=== PATIENT | female | born 1985 | race Caucasian/White ===

== ENCOUNTER 2019-06-21 15:03 | Inpatient (IN) | payer OTHER ==
[2019-06-21] MEDS ORDERED: OXYTOCIN 10 UNIT/ML 1 ML VIAL IM PRN (15:05)
[2019-06-21] MEDS ORDERED: METHYLERGONOVINE 0.2 MG/ML 1 ML AMP IM PRN (15:05)
[2019-06-21] MEDS ORDERED: TERBUTALINE 1 MG/ML VIAL SQ PRN (15:05)
[2019-06-21] MEDS ORDERED: LIDOCAINE 0.5% (PF) 5 MG/ML (50 ML SDV) SQ PRN (15:05)
[2019-06-21] MEDS ORDERED: CARBOPROST TROMETHAMINE 250 MCG/ML 1 ML AMP IM PRN (15:05)
[2019-06-21] MEDS ORDERED: OXYTOCIN 30 UNITS/500 ML NS 30 UNIT in SALINE 1 500ML.BAG IV SCH (15:15)
[2019-06-21] MEDS ORDERED: DINOPROSTONE 10 MG INSERT.ER VAGINAL ONE (15:30)
[2019-06-21 16:07] LABS: Basophils % (A) 0 %; Eosinophils % (A) 0 %; HCT 36.4 % (34.0-46.0); HGB 12.3 gm/dL (11.4-16.0); Lymphocytes # (A) 1.1 k/uL (1.0-4.8); Lymphocytes % (A) 13 %; MCH 33.2 pg (25.0-35.0); MCHC 33.7 g/dL (31.0-37.0); MCV 98.3 fL (80.0-100.0); Mean Platelet Volume 10.1; Monocytes # (A) 0.3 k/uL (0-1.0); Monocytes % (A) 3 %; Neutrophils # (A) 6.9 k/uL (1.3-7.7); Neutrophils % (A) 81 %; Platelet Count 195 k/uL (150-450); RDW 12.2 % (11.5-15.5); WBC 8.4 k/uL (3.8-10.6)
--- NOTE | 2019-06-21 19:14 | P.HPOB ---
History of Present Illness H&P Date: 06/21/19 Chief Complaint: IUP at 39 and 5/sevenths weeks This is a pleasant 33-year-old 1 para 0 at 39-5/7 weeks with an estimated due date of 06/23/2019. Patient was seen in the office for routine visit. Ultrasound was performed ZACK was noted to be low at 8. Reacti ve NST was obtained in the office. On cervical exam she was 1-2/50/-3. Given her ZACK on the lower end of normal recommendation was made for induction of labor. Patient agreed and was sent to labor and delivery for Cervidil induction of labor. On labs she had a blood type of B+, rubella immune, B surface antigen negative, RPR nonreactive, GBS negative. Patient notes good movement and denies contractions. No loss of fluid or vaginal bleeding. Review of Systems Constitutional: Denies chills, Denies fatigue, Denies fever Ears, nose, mouth and throat: Denies headache Cardiovascular: Denies leg edema Gastrointestinal: Denies constipation, Denies diarrhea, Denies nausea, Denies vomiting Genitourinary: Reports Past Medical History Past Medical History: Thyroid Disorder History of Any Multi-Drug Resistant Organisms: None Reported Past Surgical History: No Surgical Hx Reported Past Anesthesia/Blood Transfusion Reactions: No Reported Reaction Past Psychological History: No Psychological Hx Reported Smoking Status: Never smoker Past Alcohol Use History: None Reported Past Drug Use History: None Reported - Past Family History Father Family Medical History: Cancer Medications and Allergies Home Medications Medication Instructions Recorded Confirmed Type Levothyroxine Sodium [Synthroid] 50 mcg PO DAILY 06/21/19 06/21/19 History Omeprazole [PriLOSEC] 10 mg PO ONCE 06/21/19 06/21/19 History Pnv No.95/Ferrous Fum/Folic AC 1 tab PO ONCE 06/21/19 06/21/19 History [ Multivitamin Tablet] Allergies Allergy/AdvReac Type Severity Reaction Status Date / Time No Known Allergies Allergy Verified 06/21/19 15:12 Exam Osteopathic Statement: *. No significant issues noted on an osteopathic structural exam other than those noted in the History and Physical/Consult. Vital Signs Temp Pulse Resp BP Pulse Ox 06/21/19 15:11 97 F L 89 16 144/82 98 Intake and Output 06/21/19 06/21/19 06/21/19 06:59 14:59 22:59 Other: Weight 83.461 kg Targeted physical exam is performed in this date and mercerizing range controller a well-nourished well-developed female in no acute distress, breathing is noted to be nonlabored, heart has regular rate and rhythm, abdomen is gravid and appropriate for gestational age, heart tones returned be category 1 and she is not kory. On cervical exam she was 1-2/50/-3, Cervidil was placed without di fficulty. Results Result Diagrams: 06/21/19 15:05 Abnormal Lab Results - Last 24 Hours (Table) 06/21/19 Range/Units 15:05 RBC 3.70 L (3.80-5.40) m/uL Assessment and Plan (1) Term Current Visit: Yes Status: Acute Code(s): Z34.90 - ENCNTR FOR SUPRVSN OF NORMAL , UNSP, UNSP TRIMESTER SNOMED Code(s): 53161411 Plan: Patient is admitted to labor and delivery for Cervidil induction of labor. Plan of care discussed with the patient we'll plan to pull Cervidil around 3:30/4 AM and start Pitocin soon after. Patient is advised on pain control options including Stadol and epidural when appropriate. Patient states understanding anticipate spontaneous vaginal delivery tomorrow.
[2019-06-21] MEDS ORDERED: ACETAMINOPHEN TAB 500 MG TAB PO STA (21:01)
[2019-06-21] MEDS: LACTATED RINGERS 1,000 ML IV SCH ×2 (21:03→22:05)
[2019-06-21] MEDS: BUTORPHANOL 1 MG/ML 1 ML VIAL IV PRN (22:15)
[2019-06-22] MEDS: BUTORPHANOL 1 MG/ML 1 ML VIAL IV PRN (00:12)
[2019-06-22] MEDS ORDERED: fentaNYL (PF) 50 MCG/ML 5 ML AMP ONE (01:32)
[2019-06-22] MEDS ORDERED: ROPIVACAINE 5MG/ML 20ML VIAL ONE (01:32)
[2019-06-22] MEDS ORDERED: SODIUM CHLORIDE 0.9% 100 ML BAG ONE (01:32)
[2019-06-22] MEDS: LACTATED RINGERS 1,000 ML IV SCH ×4 (01:45→12:17)
[2019-06-22] MEDS ORDERED: ROPIVACAINE 100 MG, fentaNYL (PF) 200 MCG in SODIUM CHLORIDE 0.9% 76 ML EPIDURAL ONE (02:00)
[2019-06-22] MEDS ORDERED: CITRIC ACID-SODIUM CITRATE 15 ML CUP PO ONE ×2 (07:12→07:16)
[2019-06-22] MEDS ORDERED: PRENATAL VIT-IRON-FOLIC ACID 1 EACH CAP PO ONE (07:30)
[2019-06-22] MEDS ORDERED: ePHEDrine SULFATE/0.9% NACL/PF 50 MG/5 ML SYRINGE IV ONE (07:38)
[2019-06-22] MEDS ORDERED: MORPHINE SULFATE (PF) 0.3 MG/0.3 ML SYR ONE (07:38)
[2019-06-22] MEDS ORDERED: OXYTOCIN 10 UNIT/ML 1 ML VIAL ONE (07:38)
[2019-06-22] MEDS ORDERED: KETOROLAC 30 MG/ML 1 ML VIAL ONE (07:38)
[2019-06-22] MEDS ORDERED: SIMETHICONE 80 MG CHEWABLE PO PRN (08:23)
[2019-06-22] MEDS ORDERED: diphenhydrAMINE 25 MG CAP PO PRN (08:23)
[2019-06-22] MEDS ORDERED: METOCLOPRAMIDE 5 MG/ML 2 ML VIAL IVP PRN (08:23)
[2019-06-22] MEDS ORDERED: ONDANSETRON 4 MG/2 ML VIAL IVP PRN (08:23)
[2019-06-22] MEDS ORDERED: diphenhydrAMINE 50 MG/ML 1 ML VIAL IVP PRN ×2 (08:23)
[2019-06-22] MEDS ORDERED: HYDROcodone/APAP 5-325MG 1 EACH TAB PO PRN (08:23)
[2019-06-22] MEDS ORDERED: ACETAMINOPHEN TAB 325 MG TAB PO PRN (08:23)
[2019-06-22] MEDS ORDERED: diphenhydrAMINE 50 MG CAP PO PRN (08:23)
[2019-06-22] MEDS ORDERED: ZOLPIDEM 5 MG TAB PO PRN (08:23)
[2019-06-22] MEDS ORDERED: ACETAMINOPHEN IV (For NPO) 1,000 MG in EMPTY BAG 1 BAG IVPB ONE (08:23)
[2019-06-22] MEDS ORDERED: NALOXONE 0.4 MG/ML 1 ML VIAL IV PRN (08:23)
[2019-06-22] MEDS ORDERED: LACTATED RINGERS 1,000 ML IV SCH (08:30)
[2019-06-22] MEDS ORDERED: OXYTOCIN 20 UNITS/1000 ML NS 1,000 ML IV SCH (08:30)
--- NOTE | 2019-06-22 08:30 | P.OP ---
Date of Procedure: 06/22/19 Preoperative Diagnosis: IUP at 39 and 6/sevenths weeks nonreassuring heart tones Postoperative Diagnosis: Same plus partial abruption Procedure(s) Performed: Primary low transverse section Anesthesia: epidural Surgeon: Winnie Edward Roofing Contractor #1: Nichelle Garcia Estimated Blood Loss (ml): 400 IV fluids (ml): 1,000 Urine output (ml): 100 Pathology: other (Placenta) Condition: stable Disposition: observation Indications for Procedure: This pleasant 33-year-old 1 para 0 at 39-5/7 weeks presented to labor and delivery for induction of labor secondary to oligohydramnios. ZACK was done in the office and noted to be low at 8. NST was performed category 1 heart tones were noted. Patient was admitted to labor delivery Cervidil induction was begun. Patient began active labor and delivery cells were noted. Patient is noted to have return to baseline with good variability. This subsequently happened a second time with return to baseline after many hours of Pitocin augmentation of labor was begun as heart tones were noted to be category 1. With infusion of oxytocin late decelerations were noted in 3 straight contractions. At this time it was deemed necessary for primary low transverse section secondary to nonreassuring heart tones. Risks were reviewed patient stated understanding and was taken back to the operating suite. Operative Findings: Normal uterus tubes and ovaries were appreciated. Female infant were delivered was delivered at 752, weight of 7 lbs. 11 oz. with Apgars of 9-9 at one and 5 metastases respectively. Description of Procedure: Patient was taken back to the operating suite where epidural anesthesia was found be adequate. She was prepped and draped in normal sterile fashion in the dorsal supine position. A Pfannenstiel skin incision was made with the scalpel and carried through the underlying layer of fascia. The fascia was then incised in the midline and extended laterally. The superior aspect of the fascial incision was then grasped vivienne clamps, elevated and underlying rectus muscles dissected off sharply. Attention was then turned the patient's inferior aspect of the fascial incision which was grasped with Flora clamps, elevated and underlying rectus muscles dissected off sharply once again. The rectus muscles were in the midline the peritoneum was identified and entered. The bladder blade was then inserted and the vesicouterine peritoneum was identified and the bladder flap was created using sharp and blunt dissection. Hysterotomy incision was made with the scalpel and bloody fluid was noted. The head was encountered and the was delivered in the usual fashion the umbilical cords doubly clamped and cut. Spontaneous cry was noted at . The placenta was then removed manually and the uterus was cleared of all clots and debris. Hysterotomy incision was closed with 0 Vicryl in a running locked fashion 2. Bleeding was noted on the midportion of the hysterotomy incision therefore a [id number] suture was used to obtain hemostasis. The pelvis was then copiously irrigated and hysterotomy incision was then inspected once again hemostasis was appreciated. The uterus was returned to the abdomen. The gutters were cleared of all clots and debris. The hysterotomy incision was inspected once again and hemostasis was appreciated. The fascia was closed with 0 Vicryl in a running fashion from one lateral edge the other. The subcu cutaneous tissue was irrigated and found to be hemostatic. This was closed with 3-0 Vicryl. The skin was then closed with 4-0 Vicryl in a subarticular fashion Steri-Strips and sterile dressings were applied. All counts were correct 2 patient tolerated procedure well.
[2019-06-22] MEDS: LEVOTHYROXINE 50 MCG TAB PO SCH (11:41)
[2019-06-22] MEDS ORDERED: IBUPROFEN IV 800 MG in SODIUM CHLORIDE 0.9% 250 ML IV ONE (15:30)
[2019-06-22] MEDS: SENNOSIDES-DOCUSATE SODIUM 1 EACH TAB PO SCH (19:37)
[2019-06-22] MEDS: IBUPROFEN 600 MG TAB PO PRN (23:06)
[2019-06-23] MEDS: LEVOTHYROXINE 50 MCG TAB PO SCH (06:40)
[2019-06-23 06:47] LABS: Basophils % (A) 0 %; Eosinophils # (A) 0.1 k/uL (0-0.7); Eosinophils % (A) 1 %; HGB 11.3 gm/dL (11.4-16.0); Lymphocytes # (A) 1.2 k/uL (1.0-4.8); Lymphocytes % (A) 11 %; MCHC 34.1 g/dL (31.0-37.0); MCV 99.7 fL (80.0-100.0); Mean Platelet Volume 10.3; Monocytes # (A) 0.4 k/uL (0-1.0); Monocytes % (A) 4 %; Neutrophils % (A) 82 %; Platelet Count 188 k/uL (150-450); RBC 3.31 m/uL (3.80-5.40); RDW 12.4 % (11.5-15.5); WBC 10.9 k/uL (3.8-10.6)
--- NOTE | 2019-06-23 08:48 | P.PNOBGPC ---
Subjective - Subjective Principal diagnosis: POD 1 LTCS Interval history: Patient is doing well postoperatively. She is ambulating and voiding without difficulty. Her pain is controlled with oral ibuprofen. She is tolerating clear liquids without nausea or vomiting. She is breast-feeding without difficulty. She states her lochia is minimal. Patient reports: Reports appetite normal, Reports voiding normally, Reports pain well controlled, Reports ambulating normally [place]: doing well Objective - Vital Signs Latest vital signs: Vital Signs Temp Pulse Resp BP Pulse Ox 06/23/19 04:00 98.3 F 67 16 112/67 06/22/19 23:48 98.6 F 74 16 111/61 06/22/19 20:00 98.4 F 63 16 126/73 06/22/19 17:32 98.1 F 06/22/19 16:00 99.6 F 62 18 98/60 06/22/19 12:00 98.2 F 57 L 18 120/74 95 06/22/19 10:25 97.9 F 64 16 111/57 99 06/22/19 09:55 98.1 F 67 16 111/58 98 06/22/19 09:25 98.0 F 63 16 149/70 100 06/22/19 09:10 60 14 116/92 100 06/22/19 08:55 61 16 122/63 100 Intake and Output 06/22/19 06/23/19 06/23/19 22:59 06:59 14:59 Output Total 550 350 Balance -550 -350 Output: Urine 550 350 Uretheral ([place]) 400 Other: Voiding Method Indwelling Catheter # Voids 1 - Exam Extremities: Present: normal, edema Incision: Present: intact Uterus: Present: normal, firm - Labs Labs: Abnormal Lab Results - Last 24 Hours (Table) 06/23/19 Range/Units 06:32 WBC 10.9 H (3.8-10.6) k/uL RBC 3.31 L (3.80-5.40) m/uL Hgb 11.3 L (11.4-16.0) gm/dL Hct 33.0 L (34.0-46.0) % Neutrophils # 9.0 H (1.3-7.7) k/uL Assessment and Plan (1) Term Current Visit: Yes Status: Acute Code(s): Z34.90 - ENCNTR FOR SUPRVSN OF NORMAL , UNSP, UNSP TRIMESTER SNOMED Code(s): 84126819 (2) Non-reassuring electronic monitoring tracing Current Visit: Yes Status: Acute Code(s): O36.8390 - MATERN CARE FOR ABNLT FETL HRT RATE OR RHYM, UNSP TRI, UNSP SNOMED Code(s): 121298873 (3) S/P section Current Visit: Yes Status: Acute Code(s): Z98.891 - HISTORY OF UTERINE SCAR FROM PREVIOUS SURGERY SNOMED Code(s): 668308804 (4) Placental abruption Current Visit: Yes Status: Acute Code(s): O45.90 - PREMATURE SEPARATION OF PLACENTA, UNSP, UNSP TRIMESTER SNOMED Code(s): 289950499 Plan: Patient is doing well postoperatively. Plan to advance diet to regular. Encourage ambulation. Anticipate discharge home tomorrow a.m.
[2019-06-23] MEDS: SENNOSIDES-DOCUSATE SODIUM 1 EACH TAB PO SCH ×2 (09:04→20:14)
[2019-06-23] MEDS: IBUPROFEN 600 MG TAB PO PRN ×2 (09:04→17:25)
[2019-06-24] MEDS: LEVOTHYROXINE 50 MCG TAB PO SCH (06:55)
[2019-06-24] MEDS: IBUPROFEN 600 MG TAB PO PRN (06:58)
--- NOTE | 2019-06-24 08:27 | P.DS ---
Providers Date of admission: 06/21/19 15:03 Expected date of discharge: 06/24/19 Attending physician: Winnie Edward Primary care physician: Stated None - Discharge Diagnosis(es) (1) Term Current Visit: Yes Status: Acute (2) Non-reassuring electronic monitoring tracing Current Visit: Yes Status: Acute (3) S/P section Current Visit: Yes Status: Acute (4) Placental abruption Current Visit: Yes Status: Acute Hospital Course: This pleasant 33-year-old 1 para 0 at 39-5/7 weeks presented to labor and delivery for Cervidil induction of labor. Patient was seen in the office fluid was noted to be slightly low at 8. Patient was admitted Cervidil was placed without difficulty. Through the night patient made progress in labor becoming uncomfortable and requesting epidural placement. Patient did have 2 episodes of heart tones decelerations. Good return to baseline was noted after 2. Patient progressed to 6 cm Pitocin augmentation of labor was begun at that time persistent late decelerations were noted therefore the decision was made for primary low transverse section secondary to nonreassuring heart tones. Patient was taken back to the operating suite primary C- section was performed without difficulty.. Of note the amniotic fluid upon entering the uterus was noted to be bloody consistent with partial abruption. Liveborn female infant was delivered at 752, weight of 7 lbs. 11 oz. with Apgars of 9 and 9 at one and 5 minutes respectively. Patient has done well postoperati vely. On this postop day #2 she is involuting and voiding without difficulty. She is tolerating a regular diet without nausea or vomiting. She is breast- feeding with some difficulty but reasonably well. She is ready for discharge home. Patient Condition at Discharge: Good Plan - Discharge Summary New Discharge Prescriptions: No Action Levothyroxine Sodium [Synthroid] 50 mcg PO DAILY Pnv No.95/Ferrous Fum/Folic AC [ Multivitamin Tablet] 1 tab PO ONCE Omeprazole [PriLOSEC] 10 mg PO ONCE Discharge Medication List Levothyroxine Sodium [Synthroid] 50 mcg PO DAILY 06/21/19 [History] Omeprazole [PriLOSEC] 10 mg PO ONCE 06/21/19 [History] Pnv No.95/Ferrous Fum/Folic AC [ Multivitamin Tablet] 1 tab PO ONCE 06/21/19 [History] Follow up Appointment(s)/Referral(s): Winnie Edward DO [Doctor of Osteopathic Medicine] - 2 Weeks Patient Instructions/Handouts: (DC), (GEN) Discharge Disposition: HOME SELF-CARE
[2019-06-24 09:29] VITALS: BP 132/74; PULSE 56; RESP 18; TEMP 98.5
[2019-06-24] MEDS: SENNOSIDES-DOCUSATE SODIUM 1 EACH TAB PO SCH (11:02)
== END 2019-06-24 13:50 | disposition home or self-care (01) | DRG 786 ==
LOC: 4FBP 15:03 → MERGE 06-23 14:59
PROVIDERS: ADMIT Obstetrics & Gynecology Obstetrics; ATTEND Obstetrics & Gynecology Obstetrics
PROC: 3E033VJ Introduction of Other Hormone into Peripheral Vein, Percutaneous Approach (ICD-10-PCS; 2019-06-21)
PROC: 3E0P7VZ Introduction of Hormone into Female Reproductive, Via Natural or Artificial Opening (ICD-10-PCS; 2019-06-21)
PROC: 10D00Z1 Extraction of Products of Conception, Low, Open Approach (ICD-10-PCS; principal; 2019-06-22 07:40)
DX: O41.03X0 Oligohydramnios, third trimester, not applicable or unspecified (principal); O45.93 Premature separation of placenta, unspecified, third trimester; O76 Abnormality in fetal heart rate and rhythm complicating labor and delivery; Z37.0 Single live birth; Z3A.39 39 weeks gestation of pregnancy; Z79.890 Hormone replacement therapy; O99.284 Endocrine, nutritional and metabolic diseases complicating childbirth; E07.9 Disorder of thyroid, unspecified
CPT/HCPCS: 85025; 86850; 86900; 86901

== ENCOUNTER 2021-01-14 09:56 | Inpatient (IN) | payer OTHER ==
[2021-01-09 15:56] VITALS: BMI 28.1
[2021-01-14] MEDS ORDERED: CITRIC ACID-SODIUM CITRATE 15 ML CUP PO ONE (10:01)
[2021-01-14] MEDS: LACTATED RINGERS 1,000 ML IV SCH ×11 (10:27→21:56)
[2021-01-14 10:43] LABS: Basophils % (A) 0 %; Eosinophils # (A) 0.1 k/uL (0-0.7); Eosinophils % (A) 1 %; HCT 33.3 % (34.0-46.0); HGB 11.8 gm/dL (11.4-16.0); Lymphocytes # (A) 1.1 k/uL (1.0-4.8); Lymphocytes % (A) 15 %; MCH 35.8 pg (25.0-35.0); MCHC 35.6 g/dL (31.0-37.0); MCV 100.7 fL (80.0-100.0); Macrocytosis Slight; Mean Platelet Volume 8.9; Monocytes # (A) 0.2 k/uL (0-1.0); Monocytes % (A) 3 %; Neutrophils # (A) 5.7 k/uL (1.3-7.7); Neutrophils % (A) 78 %; Platelet Count 217 k/uL (150-450); RBC 3.31 m/uL (3.80-5.40); RDW 13.4 % (11.5-15.5); WBC 7.3 k/uL (3.8-10.6)
[2021-01-14] MEDS ORDERED: ONDANSETRON 4 MG/2 ML VIAL ONE (12:51)
[2021-01-14] MEDS ORDERED: ePHEDrine SULFATE/0.9% NACL/PF 50 MG/5 ML SYRINGE IV ONE (12:51)
[2021-01-14] MEDS ORDERED: OXYTOCIN 30 UNITS/500 ML NS BAG IV ONE (12:51)
[2021-01-14] MEDS ORDERED: NALBUPHINE 10 MG/ML (1 ML AMP) ONE (12:51)
[2021-01-14] MEDS ORDERED: MORPHINE SULFATE (PF) 0.3 MG/0.3 ML SYR ONE (12:51)
[2021-01-14] MEDS ORDERED: diphenhydrAMINE 50 MG/ML 1 ML VIAL IVP PRN ×3 (13:19→13:44)
[2021-01-14] MEDS ORDERED: NALOXONE 0.4 MG/ML 1 ML VIAL IV PRN ×2 (13:19→13:44)
[2021-01-14] MEDS ORDERED: ONDANSETRON 4 MG/2 ML VIAL IVP PRN ×2 (13:19→13:44)
[2021-01-14] MEDS ORDERED: MORPHINE SULFATE 2 MG/ML SYRINGE IVP PRN (13:19)
[2021-01-14] MEDS ORDERED: METOCLOPRAMIDE 5 MG/ML 2 ML VIAL IVP PRN (13:44)
[2021-01-14] MEDS ORDERED: diphenhydrAMINE 25 MG CAP PO PRN (13:44)
[2021-01-14] MEDS ORDERED: SIMETHICONE 80 MG CHEWABLE PO PRN (13:44)
[2021-01-14] MEDS ORDERED: ZOLPIDEM 5 MG TAB PO PRN (13:44)
[2021-01-14] MEDS ORDERED: diphenhydrAMINE 50 MG CAP PO PRN (13:44)
[2021-01-14] MEDS ORDERED: OXYTOCIN 30 UNITS/500 ML NS 30 UNIT in SALINE 1 500ML.BAG IV SCH (13:45)
[2021-01-14] MEDS ORDERED: IBUPROFEN IV 800 MG in SODIUM CHLORIDE 0.9% 250 ML IV PRN (13:45)
--- NOTE | 2021-01-14 13:50 | P.HPOB ---
History of Present Illness H&P Date: 01/14/21 Chief Complaint: IUP at 39-0/7 weeks, history of 1, desires repeat This is a 35-year-old 2 para 1001 that presents to labor and delivery at 39 0/7 weeks, estimated due date of 01/21. Patient has a prior history of a primary and desires repeat. Patient has been receiving routine care which has been essentially uncomplicated. Patient did have a COVID-19 infection during the therefore she has been receiving testing. On bloodwork this patient has a blood type of B+, rubella status immune, hep [place] surface antigen negative, HIV negative, RPR nonreactive, group beta strep was negative. Review of Systems Constitutional: Denies fatigue, Denies fever Ears, nose, mouth and throat: Denies headache Cardiovascular: Reports leg edema Respiratory: Denies dyspnea Gastrointestinal: Denies nausea, Denies vomiting Genitourinary: Reports Past Medical History Past Medical History: GERD/Reflux, Thyroid Disorder History of Any Multi-Drug Resistant Organisms: None Reported Past Surgical History: Section Past Anesthesia/Blood Transfusion Reactions: No Reported Reaction Past Psychological History: No Psychological Hx Reported Smoking Status: Never smoker Past Alcohol Use History: None Reported Past Drug Use History: None Reported - Past Family History Father Family Medical History: Cancer Medications and Allergies Home Medications Medication Instructions Recorded Confirmed Type Levothyroxine Sodium [Synthroid] 50 mcg PO DAILY 06/21/19 01/14/21 History Omeprazole [PriLOSEC] 10 mg PO ONCE 06/21/19 01/14/21 History Pnv No.95/Ferrous Fum/Folic AC 1 tab PO ONCE 06/21/19 01/14/21 History [ Multivitamin Tablet] Allergies Allergy/AdvReac Type Severity Reaction Status Date / Time No Known Allergies Allergy Verified 01/14/21 10:06 Exam Osteopathic Statement: *. No significant issues noted on an osteopathic str uctural exam other than those noted in the History and Physical/Consult. Vital Signs Temp Pulse Resp BP Pulse Ox 01/14/21 10:16 98.1 F 76 18 130/61 96 Intake and Output 01/13/21 01/14/21 01/14/21 22:59 06:59 14:59 Other: Weight 81.647 kg Tardive physical exam is performed in this date and element burner a well-nourished well-developed female in no distress, breathing is noted to be nonlabored, heart has regular rate and rhythm, abdomen is gravid and appropriate for gestational age, cervical exam is deferred. heart tones returned be category 1 and she is not kory. Results Result Diagrams: 01/14/21 10:10 Abnormal Lab Results - Last 24 Hours (Table) 01/14/21 Range/Units 10:10 RBC 3.31 L (3.80-5.40) m/uL Hct 33.3 L (34.0-46.0) % MCV 100.7 H (80.0-100.0) fL MCH 35.8 H (25.0-35.0) pg Assessment and Plan (1) H/O section Current Visit: Yes Status: Acute Code(s): Z98.891 - HISTORY OF UTERINE SCAR FROM PREVIOUS SURGERY SNOMED Code(s): 035581751 (2) Term Current Visit: No Status: Acute Code(s): Z34.90 - ENCNTR FOR SUPRVSN OF NORMAL , UNSP, UNSP TRIMESTER SNOMED Code(s): 27029963 Plan: 35-year-old at 39-2/7 weeks that presents to labor and delivery for scheduled repeat section. Procedures reviewed and all questions are answered. Patient wishes to proceed was taken back to the operating suite.
--- NOTE | 2021-01-14 13:54 | P.OP ---
Date of Procedure: 01/14/21 Preoperative Diagnosis: IUP at 39 and 0, history of 1, desires repeat Postoperative Diagnosis: Same Procedure(s) Performed: Repeat section Anesthesia: spinal Surgeon: Winnie Edward Housekeeping Supervisor #1: Winnie Edward Housekeeping Supervisor #2: Wendi Bentley Estimated Blood Loss (ml): 309 IV fluids (ml): 700 Urine output (ml): 100 Pathology: none sent Condition: stable Disposition: observation Indications for Procedure: 35-year-old with history of a prior secondary to nonreassuring heart tones and placental abruption, patient desires repeat. Operative Findings: Uterus appears normal in nature. Secondary to abdominal scarring uterus was unable to be delivered from the abdomen. Viable female delivered at 1314 via vacuum assist, weight of 7 lbs. 6 oz. and Apgars of 9 and 9 at one and 5 minutes respectively. Description of Procedure: Patient is taken back to the operating suite where spinal anesthesia was found be adequate. She is then prepped and draped in the normal sterile fashion in the dorsal supine position. A Pfannenstiel skin incision was made with the scalpel and carried through the underlying layer of fascia. The fascia then incised in the midline and the incision was extended laterally. The superior aspect the fascial incision was then grasped vivienne clamps, elevated and underlying rectus muscles dissected off sharply. Attention was then turned the inferior aspect of the fascial incision which was grasped vivienne clamps, elevated and underlying rectus muscles dissected off sharply. The rectus muscles were then in the midline the peritoneum was identified and entered. The bladder blade was then inserted into the pelvis. Some dense adhesions the noted on the right side of the uterus, these were taken down sharply with good hemostasis being appreciated. The hysterotomy incision was then performed clear fluid was obtained. Uterus was encountered in a vertex presentation and delivered via vacuum assist. A loose nuchal cord was delivered through. The umbilical cord was doubly clamped and cut and the was handed off to awaiting RN. A spontaneous cry was noted at . The placenta was then delivered manually intact with a three-vessel cord being appreciated. Secondary to scarring the uterus was unable to be delivered from the abdomen. The bladder blade was then inserted hysterotomy incision was closed with 0 Vicryl in a running locked fashion. A second inverting suture was performed. The area of adhesio lysis was noted to be bleeding therefore 2 [id number] sutures were used to obtain hemostasis. The gutters were then cleared of clots. On section the of the hysterotomy incision a small amount of bleeding was still noted over the adhesio lysis site, Surgicel powder was placed along the hysterotomy incision. The peritoneum was loosely reapproximated and the rectus muscles were then loosely reapproximated as well. The rectus muscles were inspected hemostasis was appreciated. The fascia was then closed with 0 Vicryl in a running fashion from one lateral edge the midline and the other lateral edge the midline. The subcutaneous tissue was then irrigated found to be hemostatic and closed with 3-0 Vicryl in a running fashion. The skin was then closed with 4-0 Vicryl in a septic fashion. Steri-Strips and sterile dressings were applied. All counts are noted be correct 2 at the end of the procedure. Patient and tolerated delivery well and are resting comfortably.
[2021-01-14] MEDS: ACETAMINOPHEN IV (For NPO) 1,000 MG in EMPTY BAG 1 BAG IVPB PRN ×2 (15:24→21:59)
[2021-01-14] MEDS: SENNOSIDES-DOCUSATE SODIUM 1 EACH TAB PO SCH (19:29)
[2021-01-14] MEDS: ACETAMINOPHEN TAB 500 MG TAB PO SCH ×2 (20:35→23:13)
[2021-01-14] MEDS: IBUPROFEN 600 MG TAB PO SCH (21:18)
[2021-01-15 05:17] LABS: Basophils % (A) 0 %; Eosinophils % (A) 0 %; HGB 11.2 gm/dL (11.4-16.0); Lymphocytes # (A) 0.8 k/uL (1.0-4.8); Lymphocytes % (A) 8 %; MCH 34.4 pg (25.0-35.0); MCHC 32.9 g/dL (31.0-37.0); MCV 104.7 fL (80.0-100.0); Macrocytosis Slight; Mean Platelet Volume 10.4; Monocytes # (A) 0.3 k/uL (0-1.0); Monocytes % (A) 4 %; Neutrophils % (A) 86 %; Platelet Count 175 k/uL (150-450); RBC 3.25 m/uL (3.80-5.40); WBC 9.3 k/uL (3.8-10.6)
[2021-01-15] MEDS: ACETAMINOPHEN TAB 500 MG TAB PO SCH ×3 (05:30→17:52)
[2021-01-15] MEDS: IBUPROFEN 600 MG TAB PO SCH ×4 (05:30→17:51)
[2021-01-15] MEDS: LACTATED RINGERS 1,000 ML IV SCH (05:33)
--- NOTE | 2021-01-15 07:12 | P.PN ---
Progress Note - Text 01/15/21 654am 35-year-old female status post with spinal Duramorph. Patient seen and evaluated for postop pain control, she has a VAS of 1 with no complains of nausea vomiting she does have mild pruritus which is subsided. Doing very well
--- NOTE | 2021-01-15 08:39 | P.PNOBGPC ---
Subjective - Subjective Principal diagnosis: Postop day 1, repeat section Interval history: Patient is doing well. She is ambulating and voiding without difficulty. She is tolerating clear liquids without nausea or vomiting. She is breast-feeding. She states her pain is well-controlled. Patient reports: Reports appetite normal, Reports voiding normally, Reports pain well controlled, Reports ambulating normally [place]: doing well, nursing well Objective - Vital Signs Latest vital signs: Vital Signs Temp Pulse Resp BP Pulse Ox 01/15/21 04:00 98.3 F 61 16 121/77 97 01/15/21 00:00 98.5 F 56 L 17 118/73 97 01/14/21 19:30 97.5 F L 59 L 16 114/70 98 01/14/21 18:17 95 01/14/21 18:00 16 01/14/21 16:19 16 01/14/21 16:10 64 16 117/68 01/14/21 16:00 64 16 01/14/21 15:25 64 16 121/73 01/14/21 14:55 98 F 56 L 16 119/66 01/14/21 14:40 59 L 16 117/57 01/14/21 14:25 68 16 115/55 01/14/21 14:19 16 95 01/14/21 14:10 97 F L 64 16 112/57 01/14/21 13:55 97.7 F 67 16 100/57 01/14/21 10:16 98.1 F 76 18 130/61 96 Intake and Output 01/14/21 01/15/21 01/15/21 22:59 06:59 14:59 Intake Total 450 Output Total 400 150 Balance 50 -150 Intake: IV 450 Output: Urine 400 150 Other: # Voids 1 # Bowel Movements 0 - Exam Extremities: Present: normal, edema Abdomen: Present: normal appearance Incision: Present: normal, dry, intact Uterus: Present: normal, firm - Labs Labs: Abnormal Lab Results - Last 24 Hours (Table) 01/14/21 01/15/21 Range/Units 10:10 04:55 RBC 3.31 L 3.25 L (3.80-5.40) m/uL Hgb 11.2 L (11.4-16.0) gm/dL Hct 33.3 L (34.0-46.0) % MCV 100.7 H 104.7 H (80.0-100.0) fL MCH 35.8 H (25.0-35.0) pg Neutrophils # 8.0 H (1.3-7.7) k/uL Lymphocytes # 0.8 L (1.0-4.8) k/uL Assessment and Plan (1) H/O section Current Visit: Yes Status: Acute Code(s): Z98.891 - HISTORY OF UTERINE SCAR FROM PREVIOUS SURGERY SNOMED Code(s): 597797710 (2) Term Current Visit: No Status: Acute Code(s): Z34.90 - ENCNTR FOR SUPRVSN OF NORMAL , UNSP, UNSP TRIMESTER SNOMED Code(s): 30381209 (3) S/P section Current Visit: No Status: Acute Code(s): Z98.891 - HISTORY OF UTERINE SCAR FROM PREVIOUS SURGERY SNOMED Code(s): 852249677 Plan: 35-year-old status post repeat section. Patient is doing well postoperatively. We will encourage increased ambulation, advance diet to regular. Anticipate discharge home tomorrow.
[2021-01-15] MEDS: SENNOSIDES-DOCUSATE SODIUM 1 EACH TAB PO SCH ×2 (09:43→20:13)
[2021-01-15 23:50] VITALS: TEMP 98.1
[2021-01-16] MEDS: IBUPROFEN 600 MG TAB PO SCH ×3 (00:07→13:44)
[2021-01-16] MEDS: ACETAMINOPHEN TAB 500 MG TAB PO SCH ×4 (02:02→14:32)
[2021-01-16] MEDS: SENNOSIDES-DOCUSATE SODIUM 1 EACH TAB PO SCH (08:37)
[2021-01-16 09:01] VITALS: BP 124/75; PULSE 68; RESP 17
--- NOTE | 2021-01-16 10:34 | P.DS ---
Providers Date of admission: 01/14/21 09:56 Expected date of discharge: 01/16/21 Attending physician: Winnie Edward Primary care physician: Stated None - Discharge Diagnosis(es) (1) H/O section Current Visit: Yes Status: Acute (2) Term Current Visit: No Status: Acute (3) S/P section Current Visit: No Status: Acute Hospital Course: This is a 35-year-old G2 now P2 status post repeat . Patient was admitted to labor and delivery on 01/14 for scheduled repeat section. Patient had a prior for placental abruption, nonreassuring heart tones. Patient elected repeat section. Patient had been receiving routine care which has been essentially uncomplicated. Patient was without concerns and the day of repeat . Patient was taken back to the operating suite where repeat section was completed without difficulty. Patient's postoperative course has been uneventful. On this postoperative day #2 she is ambulating and voiding without difficulty, she is tolerating a regular diet without nausea or vomiting. She states her pain is well-controlled with oral Tylenol and Motrin. Is breast-feeding without difficulty. She denies concerns and wishes discharge home. Patient Condition at Discharge: Good Plan - Discharge Summary Discharge Rx Participant: No New Discharge Prescriptions: No Action Levothyroxine Sodium [Synthroid] 50 mcg PO DAILY Pnv No.95/Ferrous Fum/Folic AC [ Multivitamin Tablet] 1 tab PO ONCE Omeprazole [PriLOSEC] 10 mg PO ONCE Discharge Medication List Levothyroxine Sodium [Synthroid] 50 mcg PO DAILY 06/21/19 [History] Omeprazole [PriLOSEC] 10 mg PO ONCE 06/21/19 [History] Pnv No.95/Ferrous Fum/Folic AC [ Multivitamin Tablet] 1 tab PO ONCE 06/21/19 [History] Follow up Appointment(s)/Referral(s): Winnie Edward DO [Doctor of Osteopathic Medicine] - 2 Weeks Patient Instructions/Handouts: (DC), (GEN) Discharge Disposition: HOME SELF-CARE
== END 2021-01-16 14:44 | disposition home or self-care (01) | DRG 788 ==
LOC: 4FBP 09:56
PROVIDERS: ADMIT Obstetrics & Gynecology Obstetrics; ATTEND Obstetrics & Gynecology Obstetrics
PROC: 4A0HX4Z Measurement of Products of Conception, Cardiac Electrical Activity, External Approach (ICD-10-PCS; 2021-01-14)
PROC: 10D00Z1 Extraction of Products of Conception, Low, Open Approach (ICD-10-PCS; principal; 2021-01-14 12:51)
DX: O34.211 Maternal care for low transverse scar from previous cesarean delivery (principal); O76 Abnormality in fetal heart rate and rhythm complicating labor and delivery; O99.613 Diseases of the digestive system complicating pregnancy, third trimester; K21.9 Gastro-esophageal reflux disease without esophagitis; E07.9 Disorder of thyroid, unspecified; O99.283 Endocrine, nutritional and metabolic diseases complicating pregnancy, third trimester; Z37.0 Single live birth; Z3A.39 39 weeks gestation of pregnancy; Z79.890 Hormone replacement therapy; Z86.19 Personal history of other infectious and parasitic diseases
CPT/HCPCS: 85025; 86850; 86900; 86901